=== PATIENT | male | born 1995 ===

== ENCOUNTER 2017-06-21 13:13 | Emergency (ER) | payer MEDICAID ==
[2017-06-21 13:23] VITALS: TEMP 99.5
--- NOTE | 2017-06-21 14:02 | C.PDOC ---
History Of Present Illness 22 y/o male presents to ED with complaints of itchy rash that developed yesterday. 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 Patient reports he took Benadryl after CT scan and later went to sleep, woke up with rash. Patient took Benadryl 2 hours ago again. Patient denies difficulty breathing, difficulty swallowing, lip or tongue swelling. No other complaints at this time. Time Seen by Provider: 06/21/17 13:30 Chief Complaint (Nursing): Allergic Reaction History Per: Patient History/Exam Limitations: no limitations Onset/Duration Of Symptoms: Days Current Symptoms Are (Timing): Still Present Associated Symptoms: Skin Rash. denies: Trouble Swallowing Past Medical History Reviewed: Historical Data, Nursing Documentation, Vital Signs Vital Signs: Last Vital Signs Temp 99.5 F 06/21/17 13:22 Pulse 72 06/21/17 14:42 Resp 16 06/21/17 14:42 BP 125/78 06/21/17 14:42 Pulse Ox 99 06/21/17 16:31 - Medical History PMH: No Chronic Diseases Surgical History: No Surg Hx Family History: States: No Known Family Hx - Social History Hx Alcohol Use: No Hx Substance Use: No - Immunization History Hx Tetanus Toxoid Vaccination: No Hx Influenza Vaccination: No Hx Pneumococcal Vaccination: No Review Of Systems Except As Marked, All Systems Reviewed And Found Negative. Constitutional: Negative for: Fever, Chills Cardiovascular: Negative for: Chest Pain Respiratory: Negative for: Cough, Shortness of Breath Gastrointestinal: Negative for: Nausea, Vomiting Skin: Positive for: Rash Neurological: Negative for: Weakness, Numbness Physical Exam - Physical Exam Appears: Non-toxic, No Acute Distress Skin: Warm, Dry, Rash (Diffuse Urticaria ) Head: Atraumatic, Normacephalic Eye(s): bilateral: Normal Inspection, EOMI Nose: Normal Oral Mucosa: Moist Tongue: No Swelling Lips: No Swelling Throat: Normal, No Drooling, Other ((-) swelling) Neck: Normal ROM, Supple Chest: Symmetrical Cardiovascular: Rhythm Regular Respiratory: Normal Breath Sounds, No Accessory Muscle Use Neurological/Psych: Oriented x3, Normal Speech, Normal Cognition ED Course And Treatment O2 Sat by Pulse Oximetry: 99 (RA) Pulse Ox Interpretation: Normal Progress Note: Prednisone ordered. On re-evaluation, patient is resting comfortably, tolerating PO, has no shortness of breath, has no intra-oral swelling, no stridor. Patient notes that pruritus has improved. Patient was advised to avoid potential allergens, and to follow up with physician in 1-2 days. Disposition - Disposition Disposition: HOME/ ROUTINE Disposition Time: 14:01 Condition: STABLE Additional Instructions: Follow up with your primary medical doctor or clinic in 2-5 days for further evaluation. Take medications as prescribed. Return to the emergency department at any time if symptoms persist or worsen. 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 - Scribe Statement The provider has reviewed the documentation as recorded by the Markusibshilpa Boyce All medical record entries made by the Markusibshilpa were at my direction and personally dictated by me. I have reviewed the chart and agree that the record accurately reflects my personal performance of the history, physical exam, medical decision making, and the department course for this patient. I have also personally directed, reviewed, and agree with the discharge instructions and disposition.
[2017-06-21 14:43] VITALS: BP 125/78; PULSE 72; RESP 16
[2017-06-21 16:28] VITALS: O2SAT 99
== END 2017-06-21 14:53 | disposition home or self-care (01) ==
LOC: C.ER 13:13
DX: L50.9 Urticaria, unspecified (principal)